=== PATIENT | female | born 1980 ===

== ENCOUNTER 2020-12-19 16:18 | Emergency (ER) | payer OTHER ==
[~2020-12-19] VITALS: Ht 165.1 cm; Wt 84.1 kg
[2020-12-19 17:52] LABS: BASO % 0.6 % (0.0-2.0); EOS # 0.3 K/mm3 (0.0-0.7); EOS % 3.9 % (0-4.0); GRAN # 4.6 K/mm3 (1.4-6.5); GRAN % 63.4 % (42.2-75.2); LYMPH # 1.8 K/mm3 (1.2-3.4); LYMPH % 24.8 % (20.0-51.0); MEAN CELL VOLUME 74 fl (80.0-100.0); MEAN CORPUSCULAR HGB CONC 30 g/dl (33.0-37.0); MONO # 0.5 K/mm3 (0.1-0.6); MONO % 6.9 % (1.7-9.3); PLATELET COUNT 305 K/mm3 (130-400); RED BLOOD COUNT 4.48 M/mm3 (4.10-5.30); REDCELL DISTRIBUTION WIDTH-CV 16.1 % (11.5-14.5)
[2020-12-19 17:56] LABS: HEMATOCRIT 33.3 % (37.0-47.0); HEMOGLOBIN 9.9 g/dl (12.5-16.0); MEAN CORPUSCULAR HEMOGLOBIN 22 pg (27.0-31.0)
[2020-12-19 18:13] LABS: ALBUMIN 3.5 gm/dL (3.5-5.0); BILIRUBIN,TOTAL 0.2 mg/dL (0.2-1.2); CALCIUM 8.4 mg/dL (8.4-10.2); CREATININE, serum 0.86 mg/dL (0.57-1.11); POTASSIUM 3.7 mmol/L (3.5-4.5); TOTAL PROTEIN 7.4 gm/dL (6.2-8.1)
[2020-12-19 19:56] LABS: COLLECTION METHOD CLEAN CATCH
[2020-12-19 20:10] LABS: PH 8 (5-8); URINE APPEARANCE Hazy; URINE BACTERIA Rare /hpf; URINE BILIRUBIN Negative (NEGATIVE); URINE BLOOD 3+ (NEGATIVE); URINE CALCIUM OXALATE CRYSTAL Present /hpf; URINE COLOR Straw; URINE GLUCOSE Negative (NEGATIVE); URINE KETONE Negative (NEGATIVE); URINE LEUKOCYTE ESTERASE Trace (NEGATIVE); URINE NITRATE Negative (NEGATIVE); URINE PROTEIN(semi-quant) Negative (NEGATIVE); URINE RBC >50 /hpf; URINE UROBILINOGEN Negative (NEGATIVE)
[2020-12-19 21:13] VITALS: BP 110/66; PULSE 87; TEMP 98.2
== END 2020-12-19 21:16 | disposition home or self-care (01) ==
LOC: COL.ER 16:18
PROVIDERS: Physician Assistant
DX: D64.9 Anemia, unspecified (principal); R55 Syncope and collapse; E11.9 Type 2 diabetes mellitus without complications; Z87.42 Personal history of other diseases of the female genital tract